=== PATIENT | male | born 1985 | race Caucasian/White ===

== ENCOUNTER → 2017-11-07 | Outpatient (CLI) | payer OTHER, BC ==
[~2017-11-07] MED LIST: ACET325T14 PO; APIX5TAB PO; ASPI-496 PO; FLEC100T PO; OMNIPAQUE 350 MG/ML, 150 ML BOTTLE ONE
== END | disposition home or self-care (01) ==
LOC: CFH 12:32
PROVIDERS: ATTEND Internal Medicine Cardiovascular Disease
DX: I48.91 Unspecified atrial fibrillation (principal)
CPT/HCPCS: 71046; 75572; Q9967

== ENCOUNTER 2017-11-08 06:38 | Observation (INO) | payer OTHER, BC ==
[2017-11-07 14:22] VITALS: BP 141/91
[2017-11-07 15:01] LABS: BASOPHILS # (AUTO) 0.06 x10^3/uL (0-0.1); BASOPHILS % (AUTO) 1 % (0-1); EOSINOPHILS # (AUTO) 0.48 x10^3/uL (0-0.4); EOSINOPHILS % (AUTO) 7 % (1-7); LYMPHOCYTES # (AUTO) 2.96 x10^3/uL (1-3.4); LYMPHOCYTES % (AUTO) 41 % (22-44); MD NO; MEAN CORPUSCULAR HEMOGLOBIN 30.5 pg (27.5-34.5); MEAN CORPUSCULAR HGB CONC 34.1 g/dL (33.2-36.2); MEAN CORPUSCULAR VOLUME 89.5 fL (81-97); MEAN PLATELET VOLUME 9.5 fL (7.4-10.4); MONOCYTES # (AUTO) 0.56 x10^3/uL (0.2-0.8); MONOCYTES % (AUTO) 8 % (2-9); NEUTROPHILS # (AUTO) 3.13 x10^3/uL (1.8-6.8); NEUTROPHILS % (AUTO) 44 % (42-75); PLATELET COUNT 274 x10^3/uL (130-400); RED BLOOD COUNT 5.16 x10^6/uL (4.38-5.82); RED CELL DISTRIBUTION WIDTH 12.9 % (9.4-14.8)
[2017-11-07 15:14] LABS: ALANINE AMINOTRANSFERASE 33 U/L (12-78); ALBUMIN 4.3 g/dL (3.4-5.0); ANION GAP 5 mmol/L (5-15); CALCIUM 9.2 mg/dL (8.5-10.1); CHLORIDE 106 mmol/L (98-107)
[2017-11-07 15:16] LABS: ALKALINE PHOSPHATASE 49 U/L (45-117); BILIRUBIN,TOTAL 0.3 mg/dL (0.2-1.0); TOTAL PROTEIN 8.1 g/dL (6.4-8.2)
[~2017-11-08] VITALS: Ht 180.3 cm; Wt 86.0 kg
[~2017-11-08 06:38] MED LIST changes: -ACET325T14 PO; -APIX5TAB PO; -FLEC100T PO; -OMNIPAQUE 350 MG/ML, 150 ML BOTTLE ONE
[2017-11-08] MEDS ORDERED: SODIUM CHLORIDE 0.9% 1,000 ML IV SCH ×2 (06:51→07:00)
[2017-11-08] MEDS ORDERED: FENTANYL PF 250 MCG/5ML ONE (07:46)
[2017-11-08] MEDS ORDERED: MIDAZOLAM 1 MG/ML, 2ML ONE (07:46)
[2017-11-08] MEDS ORDERED: DEXAMETHASONE 4 MG/ML, 1ML ONE (07:47)
[2017-11-08] MEDS ORDERED: SUCCINYLCHOLINE 20 MG/ML, 10ML ONE (07:47)
[2017-11-08] MEDS ORDERED: PROPOFOL 10 MG/ML, 20ML ONE (07:47)
[2017-11-08] MEDS ORDERED: ROCURONIUM 10 MG/ML,10ML ONE (07:47)
[2017-11-08] MEDS ORDERED: HEPARIN 1,000 UNITS/ML, 10ML ONE ×2 (08:26→10:53)
[2017-11-08] MEDS ORDERED: EPHEDRINE 50 MG/ML, 1ML ONE (08:28)
[2017-11-08] MEDS ORDERED: BUPIVACAINE 0.25% ONE (08:32)
[2017-11-08] MEDS ORDERED: PROTAMINE SULFATE 10 MG/ML, 5ML ONE (10:53)
[2017-11-08] MEDS ORDERED: ONDANSETRON 2MG/ML, 2ML ONE (10:53)
[2017-11-08] MEDS ORDERED: ZOLPIDEM 5MG TABLET PO PRN (11:00)
[2017-11-08] MEDS ORDERED: ACETAMINOPHEN 325 MG TABLET PO PRN ×2 (11:00→12:00)
[2017-11-08] MEDS: APIXABAN 5 MG TABLET PO SCH ×2 (11:36→21:38)
[2017-11-08] MEDS ORDERED: OXYcodone 5 MG/5 ML ORAL.SOL UDC ONE (11:41)
[2017-11-08] MEDS ORDERED: HYDROmorphone 1 MG/ML, 1ML IV PRN (12:00)
[2017-11-08] MEDS ORDERED: HALOPERIDOL 5 MG/ML IV PRN (12:00)
[2017-11-08] MEDS ORDERED: MIDAZOLAM 1 MG/ML, 2ML IV PRN (12:00)
[2017-11-08] MEDS ORDERED: LORazepam 2 MG/ML, 1ML IVPush PRN (12:00)
[2017-11-08] MEDS ORDERED: PROMETHAZINE 25 MG/ML, 1ML IV PRN (12:00)
[2017-11-08] MEDS ORDERED: ONDANSETRON 2MG/ML, 2ML IV PRN (12:00)
[2017-11-08] MEDS ORDERED: PROMETHAZINE 12.5 MG SUPP PR PRN (12:00)
[2017-11-08] MEDS ORDERED: ALBUTEROL SULFATE 2.5 MG/3 ML NPPB PRN (12:00)
[2017-11-08] MEDS ORDERED: MORPHINE SULFATE 4 MG/ML, 1ML IVPush PRN (12:00)
[2017-11-08] MEDS ORDERED: LABETALOL 5MG/ML, 20ML IV PRN (12:00)
[2017-11-08] MEDS ORDERED: OXYcodone 5 MG/5 ML ORAL.SOL UDC PO PRN (12:00)
[2017-11-08] MEDS ORDERED: FENTANYL PF 100 MCG/2ML IV PRN (12:00)
[2017-11-08] MEDS ORDERED: hydrALAzine 20 MG/ML, 1ML IV PRN (12:00)
[2017-11-08] MEDS ORDERED: MEPERIDINE/PF 25MG/0.5ML IVPush PRN (12:00)
[2017-11-08] MEDS ORDERED: ONDANSETRON ODT 8 MG PO PRN (12:00)
[2017-11-08] MEDS ORDERED: EPHEDRINE 50 MG/ML, 1ML IVPush PRN (12:00)
[2017-11-08] MEDS: FLECAINIDE 100MG TABLET PO SCH ×2 (13:12→21:38)
[2017-11-08 13:42] VITALS: BP 138/88
[2017-11-08 13:49] VITALS: BP 129/82
[2017-11-08] MEDS ORDERED: METOPROLOL 1 MG/ML, 5ML ONE (13:57)
[2017-11-08] MEDS ORDERED: METOPROLOL 1 MG/ML, 5ML IVPush ONE (14:00)
[2017-11-08] MEDS ORDERED: DIGOXIN 0.25 MG/ML, 2ML IVPush ONE (14:00)
[2017-11-08] MEDS ORDERED: METOPROLOL TARTRATE 25 MG TABLET PO ONE (15:00)
[2017-11-08] MEDS ORDERED: METOPROLOL TARTRATE 25 MG TABLET PO PRN (16:00)
[2017-11-08 19:58] VITALS: BP 127/82
[2017-11-09 03:00] VITALS: BP 135/78
[2017-11-09 07:40] VITALS: BP 119/76
[2017-11-09] MEDS: APIXABAN 5 MG TABLET PO SCH (08:21)
[2017-11-09] MEDS: FLECAINIDE 100MG TABLET PO SCH (08:22)
[2017-11-09] MEDS ORDERED: APIX5TAB PO (08:37)
[2017-11-09] MEDS ORDERED: FLEC100T PO (08:37)
[2017-11-09] MEDS ORDERED: ACET325T14 PO (08:37)
[2017-11-09] MEDS ORDERED: KETOROLAC 30 MG/1 ML IVPush ONE (09:00)
== END 2017-11-09 09:56 | disposition home or self-care (01) ==
LOC: CACL 06:38 → ORIP 10:59 → 5SO 12:43 → DCLOUNGE 11-09 09:44
PROVIDERS: ADMIT Internal Medicine Cardiovascular Disease; ATTEND Internal Medicine Cardiovascular Disease
DX: I48.91 Unspecified atrial fibrillation (principal)
CPT/HCPCS: 36415; 80053; 85025; 85347; 93306; 93312; 93320; 93325; 93613; 93656; 93662; 96374; C1730; C1732; C1759; C1766; C1893; C1894; G0378; J0330; J1100; J1644; J1885; J2250; J2405; J2704; J2720; J3010; J3490